=== PATIENT | male | born 1945 | race Caucasian/White ===

== ENCOUNTER → 2018-01-07 11:00 | Outpatient (CLI) | payer MEDICARE, SELFPAY ==
--- NOTE | 2018-01-07 | DI.CT.S_ITS ---
PROCEDURE: CT CHEST WO CON INDICATIONS: ATELECTASIS OF LEFT LUNG TECHNIQUE: Noncontrast 5 mm thick sections acquired from the pulmonary apices to the posterior costophrenic angles. 7 mm thick coronal and sagittal MIP reformats were then acquired. For radiation dose reduction, the following was used: automated exposure control, adjustment of mA and/or kV according to patient size. COMPARISON: [facility], , CHEST 2 VIEW, 02/12/2017, 14:13. FINDINGS: Image quality: Excellent. Lungs and pleura: 7 mm oval moderate noted in the anterior aspect of left lower lobe just posterior to oblique fissure (series 2 image 25). Faint 6 mm at ground glass density nodule is noted in posterior aspect of right lower lobe adjacent to posterior pleura (series 2 image 34). Triangular-shaped density measures 6 mm in size is also noted along minor fissure in the right hilar region (series 2 image 29). 6 mm groundglass density adjacent to posterior pleura of left lung base is also seen (series 2 image 48). Mild dependent atelectasis in posterior aspect of bilateral lung javed are seen. No pleural effusions or pneumothorax. Central and peripheral airways are patent and normal in caliber. Mediastinum: Heart size is normal. No pericardial effusion. Nonspecific borderline enlarged precarinal lymph node is seen and measures 1.1 cm in short axis diameter. Subcentimeter lymph nodes also seen scattered in mediastinum measures up to 6 mm in size in prevascular space. No hilar adenopathy. Thoracic aorta and central pulmonary arteries are normal in size. Esophagus is normal in caliber. No hiatal hernia. Bones and chest wall: No suspicious bony lesions. No vertebral body compression fractures. No axillary or supraclavicular adenopathy by size criteria. Thyroid gland is visualized and is within normal limits. Abdomen: Visualized upper abdominal solid organs and bowel loops appear normal in the absence of contrast. IMPRESSION: 1. 6-7 mm solid and ground glass density nodules in bilateral lung javed as described above. Based on [employer] recommendations, a followup CT study at 3-6 month is recommended followed by annual CT for 5 years. 2. Nonspecific borderline enlarged pretracheal precarinal lymph node. 3. Bibasilar dependent atelectasis. Dependent atelectasis in posterior aspect of the lateral lung javed. Airway is patent. Dictated by: Catrachito Allen M.D. on 01/07/2018 at 12:46 Approved by: Catrachito Allen M.D. on 01/07/2018 at 13:06
== END ==
PROVIDERS: Visit Provider Family Medicine
DX: J98.11 Atelectasis (principal); R59.0 Localized enlarged lymph nodes; R91.8 Other nonspecific abnormal finding of lung field
CPT/HCPCS: 71250

== ENCOUNTER → 2019-02-17 10:05 | Outpatient (CLI) | payer MEDICARE, SELFPAY ==
--- NOTE | 2019-02-17 | DI.MRI.S_ITS ---
PROCEDURE: MR HEAD/BRAIN WO/W CON INDICATIONS: Pulmonary Nodules TECHNIQUE: Noncontrast axial T1 spin echo, axial T2 fast spin echo, sagittal and axial FLAIR, coronal T2 fast spin echo, axial gradient echo, axial diffusion and ADC through the brain. After the administration of contrast, axial and coronal T1 spin echo with fat saturation through the brain. COMPARISON: None. FINDINGS: Image quality: Excellent. CSF spaces: Basal cisterns are patent. No extra-axial fluid collections. Ventricles are normal in size and shape. Brain: No midline shift. No intracranial bleeds or masses. No abnormal intracranial enhancement. There is cerebral volume loss for age. There is periventricular white matter chronic small vessel ischemic change. The brainstem appears normal. Diffusion-weighted images demonstrate no acute ischemic insults. No chronic ischemic insults. Normal intravascular flow voids are present. Skull and face: Calvarial marrow is normal in signal. Orbits appear normal. Note is made of bilateral lens replacements. Sinuses: Sinuses and mastoids appear clear. IMPRESSION: No findings of metastatic disease are seen. No masses or abnormal enhancement can be seen. Note is made of age-appropriate brain parenchymal volume loss and chronic small vessel ischemic changes. No findings of acute or subacute infarction can be seen. Dictated by: Scott Cordoba M.D. on 02/17/2019 at 10:30 Approved by: Scott Cordoba M.D. on 02/17/2019 at 10:31
--- NOTE | 2019-02-17 | DI.RAD.S_ITS ---
PROCEDURE: XR KNEE LT 3V INDICATIONS: Arthralgia of RT knee TECHNIQUE: 3 views of the knee were acquired. COMPARISON: None. FINDINGS: Bones: No fractures or dislocations. No suspicious bony lesions. Mild narrowing of the medial joint space. Scattered degenerative subchondral sclerosis and spurring. Chronic appearing ossicle projecting at the tibial tuberosity raising possibility of distal patellar tendinopathy. Lateral patellar tilt and subluxation Soft tissues: No joint effusion. No suspicious soft tissue calcifications. IMPRESSION: Mild joint degeneration as above. Dictated by: Andi cMclure M.D. on 02/17/2019 at 12:33 Approved by: Andi Mcclure M.D. on 02/17/2019 at 12:34
--- NOTE | 2019-02-17 | DI.RAD.S_ITS ---
PROCEDURE: XR KNEE RT 3V INDICATIONS: Arthritis of RT knee TECHNIQUE: 3 views of the knee were acquired. COMPARISON: None. FINDINGS: Bones: No fractures or dislocations. No suspicious bony lesions. Scattered degenerative subchondral sclerosis and spurring. Moderate narrowing of the lateral joint space. Severe patellofemoral joint space narrowing Soft tissues: No joint effusion. No suspicious soft tissue calcifications. 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 Dictated by: Andi Mcclure M.D. on 02/17/2019 at 11:23 Approved by: Andi Mcclure M.D. on 02/17/2019 at 11:46
[2019-02-17 10:48] LABS: Alanine Aminotransferase 37 IU/L (21-72); Albumin 4.4 g/dL (3.5-5.0); Albumin Globulin Ratio 1.3 (1.0-2.8); Alkaline Phosphatase 55 U/L (38-126); Aspartate Aminotransferase 29 IU/L (17-59); Bilirubin Total 0.9 mg/dL (0.2-1.3); Blood Urea Nitrogen 18 mg/dL (9-20); Calcium 9.5 mg/dL (8.4-10.2); Carbon Dioxide 26 mmol/L (22-32); Chloride 104 mmol/L (98-107); Estimated Glomerular Filt Rate > 60.0 mL/min (>60); Globulin 3.3 g/dL (1.7-4.1); Glucose 110 mg/dL (80-110); HEMOLYSIS < 15 (0-50); Potassium 4.2 mmol/L (3.4-5.1); Sodium 139 mmol/L (137-145); Total Protein 7.7 g/dL (6.3-8.2)
--- NOTE | 2019-02-17 11:14 | DI.CT.S_ITS ---
PROCEDURE: CT CHEST W CON INDICATIONS: Pulonary Nodules TECHNIQUE: After the administration of intravenous contrast, 5 mm thick sections acquired from the pulmonary apices to the posterior costophrenic angles. 1 mm axial lung, 5 mm thick coronal and sagittal reformats and 7 mm axial MIP were acquired. For radiation dose reduction, the following was used: automated exposure control, adjustment of mA and/or kV according to patient size. COMPARISON: [facility], CT, CT CHEST WO [facility], 01/07/2018, 11:16. FINDINGS: Image quality: Excellent. Lungs and pleura: On image 143/3 is a stable 7 mm pleural-based nodule in the left lower lobe. On current image 199/3 is a nodular density which likely is related to scarring which measures 6 x 10 mm. On the previous study, it looked like more of a groundglass opacity, and it measured approximately 8 mm on prior image 33/2. The previous study was obtained using 5 mm thick slices and the current study is obtained using 1 mm thick slices. This density is likely unchanged in size, lock for differences in technique. Minimal pleural thickening is present at the junction between the minor and major fissure. There was previously noted on image 2/29. It is stable and not suspicious. No new or increasing pulmonary nodules. No acute air space opacities. No pleural effusions or pneumothorax. Central and peripheral airways are patent and normal in caliber. Mediastinum: Heart size is normal. Coronary artery stents. No pericardial effusion. No mediastinal or hilar adenopathy by size criteria. Thoracic aorta and central pulmonary arteries are normal in size. Esophagus is normal in caliber. No hiatal hernia. Bones and chest wall: No suspicious bony lesions. No vertebral body compression fractures. No axillary or supraclavicular adenopathy by size criteria. Thyroid gland is unremarkable. Abdomen: Visualized upper abdominal solid organs appear normal. Upper abdominal bowel loops are normal in caliber. IMPRESSION: 1. Stable bilateral pulmonary nodular densities over the past 13 months. Comment: Recommend repeat CT in 12 months to document stability over a two-year period. Dictated by: Marlon Rea M.D. on 02/17/2019 at 12:27 Approved by: Marlon Rea M.D. on 02/17/2019 at 12:51
== END ==
PROVIDERS: Visit Provider Family Medicine
DX: R91.8 Other nonspecific abnormal finding of lung field (principal); M17.0 Bilateral primary osteoarthritis of knee; M25.562 Pain in left knee; Z95.5 Presence of coronary angioplasty implant and graft; C79.31 Secondary malignant neoplasm of brain
CPT/HCPCS: 36415; 70553; 71260; 73562; 80053; A9579; Q9967

== ENCOUNTER → 2019-11-23 17:18 | Outpatient (CLI) | payer MEDICARE, SELFPAY ==
--- NOTE | 2019-11-23 | DI.MRI.S_ITS ---
PROCEDURE: MR KNEE RT WO CON INDICATIONS: Unilateral primary osteoarthritis, right knee TECHNIQUE: Noncontrast sagittal PD fast spin echo and T2 fast spin echo with fat saturation, sagittal 3-D FLASH with fat saturation; coronal T1 spin echo and PD fast spin echo with fat saturation, and axial PD fast spin echo with fat saturation through the knee. COMPARISON: None. FINDINGS: Image quality: Excellent. Menisci: Myxoid degeneration throughout the medial meniscus, there is amorphous intermediate signal change which extends to the undersurface of the body on image 23/h possibility of early or subtle nondisplaced tear Ill-defined lateral meniscal tear involving the body and anterior horn, with near-complete extrusion. Cruciate ligaments: Anterior cruciate ligament appears intact. Posterior cruciate ligament appears intact. Medial structures: The medial collateral ligament appears intact. Semimembranosus tendon appears intact. Visualized portions of the pes anserinus tendons appear normal. No abnormal bursal fluid. Lateral structures: The lateral collateral ligament intact. Biceps femoris tendon appears intact. Popliteus tendon grossly unremarkable. Iliotibial band appears intact. Anterior structures: Quadriceps tendon intact. Medial and lateral patellofemoral ligaments intact. There is mild patellar tendinopathy. Prepatellar and superficial infrapatellar subcutaneous edema/fluid. Bones and cartilage: No focal marrow contusion or discrete low signal fracture line. Within the medial compartment, near full-thickness loss of the femoral articular cartilage. There is diffuse surface fraying and partial-thickness loss in particular involving the peripheral tibial plateau cartilage. Within the lateral compartment, diffuse partial-thickness loss of the femoral and tibial articular cartilage with subchondral osteophyte image 20/11 at the femoral condyle. Within the patellofemoral compartment, with full-thickness loss of the cartilage overlying the lateral patellar facet lateral femoral trochlea with underlying subchondral marrow edema and cystic change. Joint space: No joint effusion. No Dejesus's cyst. No specific evidence of intra-articular loose body. IMPRESSION: Complex lateral meniscal tear involving the body and anterior horn with near-complete extrusion Possible subtle undersurface tear involving the body of the medial meniscus. There is also prominent T2 hyperintense signal change at the posterior meniscocapsular junction raising the possibility of meniscocapsular separation. Please correlate to clinical exam findings. Patellar tendinopathy with adjacent edema/fluid Severe tricompartmental degeneration Dictated by: Andi Mcclure M.D. on 11/24/2019 at 10:10 Approved by: Andi Mcclure M.D. on 11/24/2019 at 11:28
== END ==
PROVIDERS: PCP Family Medicine; Referring Provider Family Medicine; Visit Provider Family Medicine
DX: M17.11 Unilateral primary osteoarthritis, right knee (principal); S83.271A Complex tear of lateral meniscus, current injury, right knee, initial encounter
CPT/HCPCS: 73721

== ENCOUNTER → 2020-06-12 10:22 | Outpatient (CLI) | payer MEDICARE, SELFPAY ==
[2020-06-12 11:10] LABS: BUN Creatinine Ratio 12.4 (6-22); Blood Urea Nitrogen 14 mg/dL (9-20); Calcium 9.5 mg/dL (8.4-10.2); Carbon Dioxide 29 mmol/L (22-32); Chloride 104 mmol/L (98-107); Estimated Glomerular Filt Rate > 60.0 mL/min (>60); Glucose 140 mg/dL (80-110); HEMOLYSIS < 15 (0-50); Potassium 4.3 mmol/L (3.4-5.1); Sodium 140 mmol/L (137-145)
== END ==
PROVIDERS: PCP Family Medicine; Referring Provider Family Medicine; Visit Provider Family Medicine
DX: R10.9 Unspecified abdominal pain (principal)
CPT/HCPCS: 36415; 80048

== ENCOUNTER → 2020-06-13 10:55 | Outpatient (CLI) | payer MEDICARE, SELFPAY ==
--- NOTE | 2020-06-13 | DI.CT.S_ITS ---
PROCEDURE: CT ABDOMEN WO/W CON INDICATIONS: Right lower quadrant pain TECHNIQUE: 2 phase scanning was performed. Oral contrast was administered. Non-contrast 5 mm axial sections acquired from the diaphragm to the iliac crests. Following the administration of intravenous contrast, 5 mm thick portal venous-phase images were acquired from the diaphragm to the iliac crests. 5 mm thick coronal and sagittal reformats were performed. For radiation dose reduction, the following was used: automated exposure control, adjustment of mA and/or kV according to patient size. COMPARISON: None. FINDINGS: Image quality: Excellent. ABDOMEN: Lung bases: Mild bibasilar and lingular atelectasis. Heart size is normal. Scattered atherosclerotic calcifications of the coronary arteries are noted. Solid organs: Liver is normal in size and enhancement. Gallbladder is unremarkable. There is mild diffuse hepatic steatosis. Biliary system is non dilated. Pancreas enhances normally. Spleen is normal in size and enhancement. No adrenal nodules. Kidneys demonstrate normal size and enhancement, without hydronephrosis. Peritoneum and bowel: Bowel loops demonstrate normal wall thickness and caliber. No free fluid or air. Visualized portion of the stomach appear unremarkable. Nodes and vessels: No retroperitoneal or mesenteric adenopathy by size criteria. Aorta and inferior vena cava are normal in size. Scattered atherosclerotic calcifications of the abdominal aorta and iliac vessels without aneurysmal dilatation. Miscellaneous: No ventral hernias. Bones: No suspicious bony lesions. No acute vertebral body compression fractures. IMPRESSION: CT abdomen without acute abnormalities identified. Diffuse hepatic steatosis. Atherosclerotic vascular disease. No aneurysmal dilatation of the abdominal aorta. Dictated by: Tanmay Sampson M.D. on 06/13/2020 at 15:23 Approved by: Tanmay Sampson M.D. on 06/13/2020 at 15:32
== END ==
PROVIDERS: PCP Family Medicine; Referring Provider Family Medicine; Visit Provider Family Medicine
DX: R10.31 Right lower quadrant pain (principal); R10.32 Left lower quadrant pain; K76.0 Fatty (change of) liver, not elsewhere classified; I70.0 Atherosclerosis of aorta
CPT/HCPCS: 74170; Q9967

== ENCOUNTER 2020-08-08 10:30 | Outpatient (RCR) | payer MEDICARE, SELFPAY | END 2020-08-08 11:30 | LOC: CAR 10:30 | PROVIDERS: PCP Family Medicine; Referring Provider Internal Medicine Cardiovascular Disease; Visit Provider Internal Medicine Cardiovascular Disease | DX: Z95.5 Presence of coronary angioplasty implant and graft (principal) | CPT/HCPCS: 93798 ==

== ENCOUNTER → 2020-12-13 10:34 | Outpatient (CLI) | payer MEDICARE, SELFPAY ==
[2020-12-13 13:43] LABS: Prostate Specific Antigen 2.24 ng/mL (0.10-4.00)
== END ==
PROVIDERS: PCP Family Medicine; Referring Provider Specialist; Visit Provider Specialist
DX: N40.0 Benign prostatic hyperplasia without lower urinary tract symptoms (principal)
CPT/HCPCS: 36415; 84153

== ENCOUNTER → 2021-04-16 11:08 | Outpatient (CLI) | payer MEDICARE, SELFPAY ==
[2021-04-16 18:49] LABS: Add Manual Diff / Slide Review NO; Basophils Absolute Auto 100 /uL (0-100); Eosinophils Absolute Auto 100 /uL (0-450); Eosinophils Percent Auto 2.2 % (2-4); Hematocrit 50.5 % (41-53); Hemoglobin 17.4 g/dL (13.5-17.5); Lymphocytes Absolute Auto 1700 /uL (1100-4500); Lymphocytes Percent Auto 25.4 % (25-40); Mean Corpuscular HGB Conc 34.4 % (30-36); Mean Corpuscular Hemoglobin 31.1 PG (26-34); Mean Corpuscular Volume 90.2 fL (80-100); Monocytes Absolute Auto 700 /uL (0-900); Monocytes Percent Auto 10.4 % (3-14); Neutrophils Absolute Auto 4000 /uL (1500-7000); Platelet Count 248 X10^3/uL (150-400); Red Cell Distribution Width 14.2 % (11.6-14.8); White Blood Cell Count 6.5 X10^3/uL (4.5-11.0)
[2021-04-16 18:51] LABS: Alanine Aminotransferase 34 IU/L (<50); Albumin 4.5 g/dL (3.5-5.0); Albumin Globulin Ratio 1.5 (1.0-2.8); Alkaline Phosphatase 60 U/L (38-126); Aspartate Aminotransferase 30 IU/L (17-59); BUN Creatinine Ratio 13.5 (6-22); Bilirubin Total 0.8 mg/dL (0.2-1.3); Blood Urea Nitrogen 13 mg/dL (9-20); Calcium 9.7 mg/dL (8.4-10.2); Carbon Dioxide 25 mmol/L (22-32); Chloride 106 mmol/L (98-107); Estimated Glomerular Filt Rate > 60.0 mL/min (>60); Globulin 3.1 g/dL (1.7-4.1); Glucose 94 mg/dL (80-110); HEMOLYSIS 20 (0-50); Potassium 4.4 mmol/L (3.4-5.1); Sodium 141 mmol/L (137-145); Total Protein 7.6 g/dL (6.3-8.2)
== END ==
PROVIDERS: PCP Physician Assistant Medical; Visit Provider Physician Assistant
DX: E78.5 Hyperlipidemia, unspecified (principal); Z01.818 Encounter for other preprocedural examination; I10 Essential (primary) hypertension
CPT/HCPCS: 80053; 85025; 87081

== ENCOUNTER → 2021-07-04 12:06 | Outpatient (CLI) | payer MEDICARE, SELFPAY ==
[2021-07-04 19:46] LABS: Free T4, Direct Thyroxine 1.21 ng/dL (0.78-2.19)
== END ==
PROVIDERS: PCP Physician Assistant Medical; Referring Provider Physician Assistant; Visit Provider Physician Assistant
DX: E78.5 Hyperlipidemia, unspecified (principal)
CPT/HCPCS: 84439; 84443

== ENCOUNTER → 2021-10-14 09:32 | Outpatient (CLI) | payer MEDICARE, SELFPAY ==
[2021-10-14 19:34] LABS: Cholesterol 167 mg/dL (140-199); HDL Cholesterol 39 mg/dL (40-60); LDL Cholesterol Calculated 105 mg/dL (<100); Triglycerides 114 mg/dL (35-150)
[2021-10-14 19:53] LABS: Prostate Specific Antigen 48.2 ng/mL (0.10-4.00)
== END ==
PROVIDERS: PCP Physician Assistant Medical; Visit Provider Family Medicine
DX: R97.20 Elevated prostate specific antigen [PSA] (principal); E78.5 Hyperlipidemia, unspecified
CPT/HCPCS: 80061; 84153

== ENCOUNTER → 2021-10-23 13:06 | Outpatient (CLI) | payer MEDICARE, SELFPAY ==
[2021-10-23 20:00] LABS: Alanine Aminotransferase 22 IU/L (<50); Albumin 4.1 g/dL (3.5-5.0); Albumin Globulin Ratio 1.2 (1.0-2.8); Alkaline Phosphatase 66 U/L (38-126); Aspartate Aminotransferase 33 IU/L (17-59); BUN Creatinine Ratio 11.3 (6-22); Bilirubin Total 0.5 mg/dL (0.2-1.3); Blood Urea Nitrogen 12 mg/dL (9-20); Calcium 9.1 mg/dL (8.4-10.2); Carbon Dioxide 24 mmol/L (22-32); Chloride 105 mmol/L (98-107); Estimated Glomerular Filt Rate > 60 mL/min (>60); Globulin 3.3 g/dL (1.7-4.1); Glucose 111 mg/dL (80-110); HEMOLYSIS 16 (0-50); Potassium 4.5 mmol/L (3.4-5.1); Sodium 139 mmol/L (137-145); Total Protein 7.4 g/dL (6.3-8.2)
[2021-10-23 20:09] LABS: Free T4, Direct Thyroxine 1.73 ng/dL (0.78-2.19)
[2021-10-23 20:23] LABS: Prostate Specific Antigen Scrn 21.1 ng/mL (0.1-4.0)
== END ==
PROVIDERS: PCP Physician Assistant Medical; Visit Provider Family Medicine
DX: E78.5 Hyperlipidemia, unspecified (principal); Z12.5 Encounter for screening for malignant neoplasm of prostate; E03.9 Hypothyroidism, unspecified; R97.20 Elevated prostate specific antigen [PSA]
CPT/HCPCS: 80053; 84439; 84443; G0103

== ENCOUNTER → 2022-01-01 11:44 | Outpatient (CLI) | payer MEDICARE, SELFPAY ==
[2022-01-01 20:27] LABS: Prostate Specific Antigen 2.29 ng/mL (0.10-4.00)
== END ==
PROVIDERS: PCP Physician Assistant Medical; Visit Provider Family Medicine
DX: R97.20 Elevated prostate specific antigen [PSA] (principal)
CPT/HCPCS: 84153

== ENCOUNTER → 2022-08-11 14:22 | Outpatient (CLI) | payer MEDICARE, SELFPAY ==
[2022-08-11 19:42] LABS: Prostate Specific Antigen Scrn 3.11 ng/mL (0.1-4.0)
== END ==
PROVIDERS: PCP Physician Assistant Medical; Visit Provider Physician Assistant
DX: Z12.5 Encounter for screening for malignant neoplasm of prostate (principal)
CPT/HCPCS: G0103

== ENCOUNTER → 2023-09-03 09:30 | Outpatient (CLI) | payer MEDICARE, SELFPAY ==
[2023-09-03 20:40] LABS: Add Manual Diff / Slide Review NO; Basophils Absolute Auto 0 /uL (0-100); Basophils Percent Auto 0.5 % (0-2); Eosinophils Absolute Auto 300 /uL (0-450); Eosinophils Percent Auto 4.2 % (2-4); Hemoglobin 16.7 g/dL (13.5-17.5); Lymphocytes Absolute Auto 2300 /uL (1100-4500); Lymphocytes Percent Auto 30.6 % (25-40); Mean Corpuscular Hemoglobin 31.5 PG (26-34); Mean Corpuscular Volume 92.7 fL (80-100); Monocytes Absolute Auto 700 /uL (0-900); Monocytes Percent Auto 9.5 % (3-14); Neutrophils Absolute Auto 4200 /uL (1500-7000); Neutrophils Percent Auto 55.2 % (50-75); Platelet Count 249 X10^3/uL (150-400); Red Blood Cell Count 5.29 X10^6/uL (4.5-5.9); Red Cell Distribution Width 14.3 % (11.6-14.8); White Blood Cell Count 7.5 X10^3/uL (4.5-11.0)
[2023-09-03 21:14] LABS: TSH w/ Reflex to FT4 3.59 uIU/mL (0.47-4.68)
[2023-09-03 22:12] LABS: BUN Creatinine Ratio 18.9 (6-22); Blood Urea Nitrogen 20 mg/dL (9-20); Calcium 9.5 mg/dL (8.4-10.2); Carbon Dioxide 21 mmol/L (22-32); Chloride 106 mmol/L (98-107); Cholesterol 156 mg/dL (140-199); Estimated Glomerular Filt Rate > 60 mL/min (>60); Glucose 95 mg/dL (80-110); HDL Cholesterol 29 mg/dL (40-60); HEMOLYSIS < 15 (0-50); LDL Cholesterol Calculated 90 mg/dL (<100); Potassium 4.2 mmol/L (3.4-5.1); Sodium 137 mmol/L (137-145); Triglycerides 185 mg/dL (35-150)
== END ==
PROVIDERS: PCP Family Medicine; Visit Provider Family Medicine
DX: R00.1 Bradycardia, unspecified (principal); I10 Essential (primary) hypertension; I44.0 Atrioventricular block, first degree; I25.810 Atherosclerosis of coronary artery bypass graft(s) without angina pectoris; E78.5 Hyperlipidemia, unspecified
CPT/HCPCS: 80048; 80061; 84443; 85025

== ENCOUNTER → 2023-10-05 07:10 | Outpatient (CLI) | payer MEDICARE, SELFPAY ==
[2023-10-05 08:21] LABS: Cholesterol 167 mg/dL (140-199); HDL Cholesterol 32 mg/dL (40-60); LDL Cholesterol Calculated 98 mg/dL (<100); Triglycerides 183 mg/dL (35-150)
[2023-10-05 08:48] LABS: Prostate Specific Antigen 3.16 ng/mL (0.10-4.00)
== END ==
PROVIDERS: PCP Family Medicine; Referring Provider Family Medicine; Visit Provider Family Medicine
DX: R97.20 Elevated prostate specific antigen [PSA] (principal); E78.5 Hyperlipidemia, unspecified
CPT/HCPCS: 36415; 80061; 84153

== ENCOUNTER → 2023-12-30 08:59 | Outpatient (CLI) | payer MEDICARE, SELFPAY ==
[2023-12-30 20:30] LABS: Cholesterol 134 mg/dL (140-199); HDL Cholesterol 34 mg/dL (40-60); LDL Cholesterol Calculated 75 mg/dL (<100); Triglycerides 125 mg/dL (35-150)
== END ==
PROVIDERS: PCP Family Medicine; Referring Provider Family Medicine; Visit Provider Family Medicine
DX: E78.5 Hyperlipidemia, unspecified (principal)
CPT/HCPCS: 80061